=== PATIENT | male | born 1965 | race African-American/Black ===

== ENCOUNTER 2017-06-13 12:58 | Inpatient (IN) | payer OTHER ==
[2017-06-13 13:48] VITALS: BMI 27.4
--- NOTE | 2017-06-13 16:28 | HP ---
CIWA Score - CIWA Score Nausea/Vomitin-Mild Nausea/No Vomiting Muscle Tremors: 4-Moderate,w/Arms Extend Anxiety: 3 Agitation: 3 Paroxysmal Sweats: 1-Minimal Palms Moist Orientation: 1-Uncertain about Date Tacttile Disturbances: 0-None Auditory Disturbances: 0-None Visual Disturbances: 0-None Headache: 1-Very Mild CIWA-Ar Total Score: 14 Admission ROS [facility] - HPI Chief Complaint: withdrawal sx Allergies/Adverse Reactions: Allergies Allergy/AdvReac Type Severity Reaction Status Date / Time lactose AdvReac Verified 06/13/17 16:29 History of Present Illness: 51 YEARS OLD MALE FIRST ADMISSION TO [facility], WITH LONG HISTORY OF ALCOHOL COCAINE NICOTINE DEPENDENCE, HAS GERD AND DEPRESSION IS ADMITTED TO DETOX Exam Limitations: No Limitations - Ebola screening Have you traveled outside of the country in the last 21 days: No Have you had contact with anyone from an Ebola affected area: No Have you been sick,other than usual withdrawal symptoms: No Do you have a fever: No - Review of Systems Constitutional: Changes in sleep, Weight Stable EENT: reports: No Symptoms Reported, Blurred Vision (NEED EYE GLASSES RIGHT EYE BLURRED SINCE CHILD) Respiratory: reports: No Symptoms reported Cardiac: reports: No Symptoms Reported GI: reports: Nausea, Poor Fluid Intake, Indigestion, Abdominal cramping : reports: No Symptoms Reported Musculoskeletal: reports: Joint Pain (KNEES - ARTHRITIS) Integumentary: reports: No Symptoms Reported Neuro: reports: Tremors Endocrine: reports: No Symptoms Reported Hematology: reports: No Symptoms Reported Psychiatric: reports: Judgement Intact, Depressed Other Systems: Reviewed and Negative Patient History - Patient Medical History Hx Anemia: No Hx Asthma: No Hx Chronic Obstructive Pulmonary Disease (COPD): No Hx Cancer: No Hx Cardiac Disorders: No Hx Congestive Heart Failure: No Hx Hypertension: No Hx Hypercholesterolemia: No Hx Pacemaker: No HX Cerebrovascular Accident: No Hx Seizures: No Hx Dementia: No Hx Diabetes: No Hx Gastrointestinal Disorders: Yes Hx Liver Disease: No Hx Genitourinary Disorders: No Hx Sexually Transmitted Disorders: No Hx Renal Disease (ESRD): No Hx Thyroid Disease: No Hx Human Immunodeficiency Virus (HIV): No Hx Hepatitis C: No Hx Depression: Yes Hx Suicide Attempt: No Hx Bipolar Disorder: No Hx Schizophrenia: No - Patient Surgical History Past Surgical History: Yes Hx Neurologic Surgery: No Hx Cataract Extraction: No Hx Cardiac Surgery: No Hx Lung Surgery: No Hx Breast Surgery: No Hx Breast Biopsy: No Hx Abdominal Surgery: Yes (LEFT HERNIA REPAIRED AGE 15 ) Hx Appendectomy: No Hx Cholecystectomy: No Hx Genitourinary Surgery: No Hx Orthopedic Surgery: Yes (LEFT LEG FX 2008) Anesthesia Reaction: No - PPD History Previous Implant?: Yes Documented Results: Negative w/o proof Implanted On Prior [facility] Admission?: No PPD to be Administered?: Yes - Smoking Cessation Smoking history: Current every day smoker Have you smoked in the past 12 months: Yes Aproximately how many cigarettes per day: 15 Cigars Per Day: 0 Hx Chewing Tobacco Use: No Initiated information on smoking cessation: Yes 'Breaking Loose' booklet given: 06/13/17 - Substance & Tx. History Hx Alcohol Use: Yes Hx Substance Use: Yes Substance Use Type: Alcohol, Cocaine Hx Substance Use Treatment: Yes (2015) - Substances Abused Alcohol Route: Oral Frequency: Daily Amount used: 3 pints sg Age of first use: 10 Date of Last Use: 06/12/17 Cocaine Route: Smoking Frequency: 1-2 times per week Amount used: 40$ per day Age of first use: 20 Date of Last Use: 06/11/17 Family Disease History - Family Disease History Family Disease History: Other: Father (/OVERDOSE), Mother (/ CHILDBIRTH) Admission Physical Exam S - Vital Signs Vital Signs: Vital Signs - 24 hr 06/13/17 13:45 Temperature 97.1 F L Pulse Rate 66 Respiratory 16 Rate Blood Pressure 142/89 - Physical General Appearance: Yes: Nourished, Appropriately Dressed, Mild Distress, Tremorous, Irritable, Sweating, Anxious HEENTM: Yes: Hearing grossly Normal, Normocephalic, Normal Voice, Other ( READING EYE GLASSES) Respiratory: Yes: Chest Non-Tender, Lungs Clear, Normal Breath Sounds, No Respiratory Distress, No Accessory Muscle Use Neck: Yes: Supple, Trachea in good position Breast: Yes: Breasts Symetrical Cardiology: Yes: Regular Rhythm, Regular Rate, S1, S2 Abdominal: Yes: Non Tender, Soft Genitourinary: Yes: Within Normal Limits Back: Yes: Normal Inspection Musculoskeletal: Yes: full range of Motion, Gait Steady, Muscle Pain (KNEES) Extremities: Yes: Normal Range of Motion, Non-Tender, Tremors Neurological: Yes: Alert, Motor Strength 5/5, Normal Response, Depressed Affect Integumentary: Yes: Warm Lymphatic: Yes: Within Normal Limits - Diagnostic (1) Alcohol dependence with uncomplicated withdrawal Current Visit: Yes Status: Acute (2) Cocaine dependence, uncomplicated Current Visit: Yes Status: Chronic (3) GERD (gastroesophageal reflux disease) Current Visit: Yes Status: Chronic Qualifiers: Esophagitis presence: without esophagitis Qualified Code(s): K21.9 - Gastro-esophageal reflux disease without esophagitis (4) Nicotine dependence Current Visit: Yes Status: Acute Qualifiers: Nicotine product type: cigarettes Substance use status: in withdrawal Qualified Code(s): F17.213 - Nicotine dependence, cigarettes, with withdrawal (5) Depression (emotion) Current Visit: Yes Status: Suspected Qualifiers: Depression Type: dysthymia Qualified Code(s): F34.1 - Dysthymic disorder Cleared for Admission S - Detox or Rehab [facility] Level of Care: Medically Managed Detox Regimen/Protocol: Librium S Breath Alcohol Content Breath Alcohol Content: 0 Urine Drug Screen - Results Drug Screen Negative: No Urine Drug Screen Results: MANISHA-Cocaine
[2017-06-13] MEDS ORDERED: LOPERAMIDE HCL 2 MG CAPSULE PO PRN (16:36)
[2017-06-13] MEDS ORDERED: MENTHOL/PHENOL 1 EACH UD MM PRN (16:36)
[2017-06-13] MEDS ORDERED: MAGNESIUM HYDROX 2400MG/30ML ORAL SUSPENSION 30 ML CUP PO PRN (16:36)
[2017-06-13] MEDS ORDERED: MAGNESIUM CITRATE 300 ML BOTTLE PO PRN (16:36)
[2017-06-13] MEDS ORDERED: NICOTINE POLACRILEX 4 MG GUM BUC PRN (16:36)
[2017-06-13] MEDS ORDERED: guaiFENesin/D-METHORPHAN HB 10 ML UNIT-DOSE CUPS PO PRN (16:36)
[2017-06-13] MEDS ORDERED: P-EPHED 60MG/TRIPROLIDI 2.5MG TABLET PO PRN (16:36)
[2017-06-13] MEDS ORDERED: MAG HYDROX/AL HYDROX/SIMETH 30 ML UNIT-DOSE CUP PO PRN (16:36)
[2017-06-13] MEDS ORDERED: hydrOXYzine PAMOATE 50 MG CAPSULE (FP) PO PRN (16:36)
[2017-06-13] MEDS ORDERED: chlordiazePOXIDE HCL 25 MG CAPSULE PO PRN (16:36)
[2017-06-13] MEDS ORDERED: ACETAMINOPHEN 325 MG TABLET (FP) PO PRN (16:36)
[2017-06-13] MEDS ORDERED: diphenhydrAMINE HCL 50 MG CAPSULE PO PRN (16:36)
[2017-06-13 21:14] LABS: URINE APPEARANCE SLCLOUDY; URINE BILIRUBIN NEGATIVE (NEGATIVE); URINE BLOOD 2+ (NEGATIVE); URINE COLOR YELLOW; URINE GLUCOSE (UA) NEGATIVE (NEGATIVE); URINE KETONE NEGATIVE (NEGATIVE); URINE LEUK ESTERASE NEGATIVE (NEGATIVE); URINE NITRITE NEGATIVE (NEGATIVE); URINE PROTEIN NEGATIVE (NEGATIVE); URINE UROBILINOGEN NEGATIVE mg/dL (0.2-1.0)
[2017-06-13 21:21] LABS: URINE HYALINE CAST 1 /lpf; URINE MUCUS MODERATE; URINE RBC 13 /hpf (0-3); URINE WBC 3 /hpf (3-5)
[2017-06-13] MEDS: RANITIDINE HCL 150 MG TABLET (FP) PO SCH (22:28)
[2017-06-13] MEDS: THIAMINE HCL 100 MG TABLET (FP) PO SCH (22:28)
[2017-06-13] MEDS: chlordiazePOXIDE HCL 25 MG CAPSULE PO SCH (22:28)
[2017-06-14] MEDS: chlordiazePOXIDE HCL 25 MG CAPSULE PO SCH ×4 (05:56→22:42)
[2017-06-14 09:59] LABS: MCH 30.2 pg (25.7-33.7); MCHC 32.7 g/dl (32.0-35.9); MEAN CELL VOLUME 92.4 fl (80-96); MEAN PLT VOLUME 8.7 fl (7.5-11.1); PLATELET COUNT 212 K/MM3 (134-434); RDW 14.9 % (11.9-15.9); WHITE BLOOD COUNT 3.4 K/mm3 (4.0-10.0)
[2017-06-14] MEDS: RANITIDINE HCL 150 MG TABLET (FP) PO SCH ×2 (10:29→22:42)
[2017-06-14] MEDS: PRENATAL VITAMINS W/ FOLIC ACID TABLET (FP) PO SCH (10:29)
[2017-06-14] MEDS: NICOTINE 21 MG/24 HOURS TOPICAL PATCH TD SCH (10:30)
[2017-06-14 10:55] LABS: ALBUMIN 3.3 g/dl (3.4-5.0); ALK PHOS 49 U/L (45-117); ANION GAP 6 (8-16); BILIRUBIN,TOTAL 0.9 mg/dL (0.2-1.0); CALCIUM 8.7 mg/dL (8.5-10.1); CO2 30 mmol/L (21-32); CREATININE 1.1 mg/dL (0.7-1.3); GLUCOSE,RANDOM 84 mg/dL (74-106); SGOT/AST 15 U/L (15-37); SGPT/ALT 21 U/L (12-78); TOT PROT 6.4 g/dl (6.4-8.2)
--- NOTE | 2017-06-14 11:38 | PN ---
[facility] CIWA - CIWA Score Nausea/Vomitin-No Nausea/No Vomiting Muscle Tremors: 4-Moderate,w/Arms Extend Anxiety: 4-Mod. Anxious/Guarded Agitation: 4-Moderately Restless Paroxysmal Sweats: 1-Minimal Palms Moist Orientation: 0-Oriented Tacttile Disturbances: 3-Moderate Itch/Numb/Burn Auditory Disturbances: 0-None Visual Disturbances: 0-None Headache: 0-None Present CIWA-Ar Total Score: 16 S Progress Note (SOAP) Subjective: ANXIETY,SWEATS, INTERMITTENT SLEEP Objective: 06/14/17 11:35 Vital Signs Temperature 96.2 F L 06/14/17 09:43 Pulse Rate 68 06/14/17 09:43 Respiratory Rate 18 06/14/17 09:43 Blood Pressure 111/70 06/14/17 09:43 O2 Sat by Pulse Oximetry (%) Laboratory Last Values WBC 3.4 K/mm3 (4.0-10.0) L 06/14/17 06:00 RBC 4.87 M/mm3 (4.00-5.60) 06/14/17 06:00 Hgb 14.7 GM/dL (11.7-16.9) 06/14/17 06:00 Hct 45.0 % (35.4-49) 06/14/17 06:00 MCV 92.4 fl (80-96) 06/14/17 06:00 MCH 30.2 pg (25.7-33.7) 06/14/17 06:00 MCHC 32.7 g/dl (32.0-35.9) 06/14/17 06:00 RDW 14.9 % (11.9-15.9) 06/14/17 06:00 Plt Count 212 K/MM3 (134-434) 06/14/17 06:00 MPV 8.7 fl (7.5-11.1) 06/14/17 06:00 Urine Color Yellow 06/13/17 20:00 Urine Appearance Slcloudy 06/13/17 20:00 Urine pH 5.0 (5.0-8.0) 06/13/17 20:00 Ur Specific [place] 1.025 (1.005-1.025) 06/13/17 20:00 Urine Protein Negative (NEGATIVE) 06/13/17 20:00 Urine Glucose (UA) Negative (NEGATIVE) 06/13/17 20:00 Urine Ketones Negative (NEGATIVE) 06/13/17 20:00 Urine Blood 2+ (NEGATIVE) H 06/13/17 20:00 Urine Nitrite Negative (NEGATIVE) 06/13/17 20:00 Urine Bilirubin Negative (NEGATIVE) 06/13/17 20:00 Urine Urobilinogen Negative mg/dL (0.2-1.0) 06/13/17 20:00 Ur Leukocyte Esterase Negative (NEGATIVE) 06/13/17 20:00 Urine RBC 13 /hpf (0-3) 06/13/17 20:00 Urine WBC 3 /hpf (3-5) 06/13/17 20:00 Hyaline Casts 1 /lpf 06/13/17 20:00 Urine Mucus Moderate 06/13/17 20:00 LABS NOTED; CMP PENDING Assessment: 06/14/17 11:36 WITHDRAWAL SX Plan: CONTINUE DETOX INCREASE PO FLUIDS REPEAT UA
--- NOTE | 2017-06-14 11:58 | CONSULT ---
[facility] Psychiatric Consult - Data Date of interview: 06/14/17 Admission source: [facility] Identifying data: First admission to [facility] for this 51 y/o AA male seeking detox treatment on for alcohol and cocaine dependence.Patient is single without children,homeless,unemployed and supported on Public Assistance. Substance Abuse History: Discussed with patient in this interview.Substance dependence confirmed by patient. Smoking Cessation. Smoking history: Current every day smoker. Have you smoked in the past 12 months: Yes. Aproximately how many cigarettes per day: 15. Cigars Per Day: 0. Hx Chewing Tobacco Use: No. Initiated information on smoking cessation: Yes. 'Breaking Loose' booklet given: 06/13/17. - Substance & Tx. History. Hx Alcohol Use: Yes. Hx Substance Use: Yes. Substance Use Type: Alcohol, Cocaine. Hx Substance Use Treatment: Yes (2015). - Substances Abused. Alcohol. Route: Oral. Frequency: Daily. Amount used: 3 pints sg. Age of first use: 10. Date of Last Use: 06/12/17. Cocaine. Route: Smoking. Frequency: 1-2 times per week. Amount used: 40$ per day. Age of first use: 20. Date of Last Use: 06/11 Medical History: Significant for GERD,arthritis (both knees),history of left inguinal herniorraphy and orthosurgery (fracture of left foot in 2007). Psychiatric History: Patient admits to past psychiatric hospitalizations at .Diagnosed with MDD.Mr Bassett reports that he gets his OPD care at [facility] in [facility].Medications reported by patient : olanzapine and lexapro.Mr Bassett denies history of suicide attempts. Physical/Sexual Abuse/Trauma History: Patient denies. Additional Comment: Urine Drug Screen Results: MANISHA-Cocaine.Noted. Mental Status Exam - Mental Status Exam Alert and Oriented to: Time, Place, Person Cognitive Function: Good Patient Appearance: Unkempt, Disheveled Mood: Nervous, Withdrawn Affect: Mood Congruent, Constricted Patient Behavior: Passive, Fatigued, Cooperative Speech Pattern: Clear Voice Loudness: Normal Thought Process: Goal Oriented Thought Disorder: Not Present Hallucinations: Denies Suicidal Ideation: Denies Homicidal Ideation: Denies Insight/Judgement: Poor Sleep: Poorly, Difficulty falling asleep (wants benadryl at bedtime) Appetite: Good Muscle strength/Tone: Normal Gait/Station: Normal Psychiatric Findings - Problem List ([place] 1, 2,3) (1) Alcohol dependence with uncomplicated withdrawal Current Visit: Yes Status: Acute (2) Cocaine dependence, uncomplicated Current Visit: Yes Status: Acute (3) Nicotine dependence Current Visit: Yes Status: Acute Qualifiers: Nicotine product type: cigarettes Substance use status: in withdrawal Qualified Code(s): F17.213 - Nicotine dependence, cigarettes, with withdrawal (4) Substance induced mood disorder Current Visit: Yes Status: Acute (5) Depressive disorder Current Visit: Yes Status: Chronic (6) GERD (gastroesophageal reflux disease) Current Visit: Yes Status: Chronic Qualifiers: Esophagitis presence: without esophagitis Qualified Code(s): K21.9 - Gastro-esophageal reflux disease without esophagitis (7) Insomnia Current Visit: Yes Status: Acute - Initial Treatment Plan Initial Treatment Plan: Psychoeducation.Detoxification.Medications : lexapro 20 mg po daily + zyprexa 5 mg po hs.Side effects/benefits are discussed with patient.He is in agreement with this plan of care.Observation.
[2017-06-14 18:34] LABS: URINE APPEARANCE CLEAR; URINE BILIRUBIN NEGATIVE (NEGATIVE); URINE BLOOD NEGATIVE (NEGATIVE); URINE COLOR LTYELLOW; URINE GLUCOSE (UA) NEGATIVE (NEGATIVE); URINE KETONE NEGATIVE (NEGATIVE); URINE LEUK ESTERASE NEGATIVE (NEGATIVE); URINE NITRITE NEGATIVE (NEGATIVE); URINE PROTEIN NEGATIVE (NEGATIVE); URINE UROBILINOGEN NEGATIVE mg/dL (0.2-1.0)
[2017-06-14] MEDS: OLANZapine 5 MG TABLET PO SCH (22:42)
[2017-06-14] MEDS: THIAMINE HCL 100 MG TABLET (FP) PO SCH (22:42)
[2017-06-15] MEDS: chlordiazePOXIDE HCL 25 MG CAPSULE PO SCH ×3 (07:56→17:33)
[2017-06-15] MEDS: ESCITALOPRAM OXALATE 20 MG TABLET (FP) PO SCH (11:06)
[2017-06-15] MEDS: PRENATAL VITAMINS W/ FOLIC ACID TABLET (FP) PO SCH (11:06)
[2017-06-15] MEDS: NICOTINE 21 MG/24 HOURS TOPICAL PATCH TD SCH (11:06)
[2017-06-15] MEDS: RANITIDINE HCL 150 MG TABLET (FP) PO SCH ×2 (11:06→22:54)
--- NOTE | 2017-06-15 11:14 | PN ---
[facility] CIWA - CIWA Score Nausea/Vomitin-No Nausea/No Vomiting Muscle Tremors: 4-Moderate,w/Arms Extend Anxiety: 4-Mod. Anxious/Guarded Agitation: 4-Moderately Restless Paroxysmal Sweats: 1-Minimal Palms Moist Orientation: 0-Oriented Tacttile Disturbances: 0-None Auditory Disturbances: 0-None Visual Disturbances: 0-None Headache: 0-None Present CIWA-Ar Total Score: 13 S Progress Note (SOAP) Subjective: ANXIETY,SWEATS, FATIGUE. Objective: 06/15/17 11:14 Vital Signs Temperature 96.1 F L 06/15/17 09:32 Pulse Rate 61 06/15/17 09:32 Respiratory Rate 18 06/15/17 09:32 Blood Pressure 115/80 06/15/17 09:32 O2 Sat by Pulse Oximetry (%) Laboratory Last Values WBC 3.4 K/mm3 (4.0-10.0) L 06/14/17 06:00 RBC 4.87 M/mm3 (4.00-5.60) 06/14/17 06:00 Hgb 14.7 GM/dL (11.7-16.9) 06/14/17 06:00 Hct 45.0 % (35.4-49) 06/14/17 06:00 MCV 92.4 fl (80-96) 06/14/17 06:00 MCH 30.2 pg (25.7-33.7) 06/14/17 06:00 MCHC 32.7 g/dl (32.0-35.9) 06/14/17 06:00 RDW 14.9 % (11.9-15.9) 06/14/17 06:00 Plt Count 212 K/MM3 (134-434) 06/14/17 06:00 MPV 8.7 fl (7.5-11.1) 06/14/17 06:00 Sodium 142 mmol/L (136-145) 06/14/17 06:00 Potassium 3.9 mmol/L (3.5-5.1) 06/14/17 06:00 Chloride 106 mmol/L (98-107) 06/14/17 06:00 Carbon Dioxide 30 mmol/L (21-32) 06/14/17 06:00 Anion Gap 6 (8-16) L 06/14/17 06:00 BUN 10 mg/dL (7-18) 06/14/17 06:00 Creatinine 1.1 mg/dL (0.7-1.3) 06/14/17 06:00 Creat Clearance w eGFR > 60 (>60) 06/14/17 06:00 Random Glucose 84 mg/dL (74-106) 06/14/17 06:00 Calcium 8.7 mg/dL (8.5-10.1) 06/14/17 06:00 Total Bilirubin 0.9 mg/dL (0.2-1.0) 06/14/17 06:00 AST 15 U/L (15-37) 06/14/17 06:00 ALT 21 U/L (12-78) 06/14/17 06:00 Alkaline Phosphatase 49 U/L (45-117) 06/14/17 06:00 Total Protein 6.4 g/dl (6.4-8.2) 06/14/17 06:00 Albumin 3.3 g/dl (3.4-5.0) L 06/14/17 06:00 Urine Color Ltyellow 06/14/17 17:45 Urine Appearance Clear 06/14/17 17:45 Urine pH 7.0 (5.0-8.0) D 06/14/17 17:45 Ur Specific [place] 1.015 (1.005-1.025) 06/14/17 17:45 Urine Protein Negative (NEGATIVE) 06/14/17 17:45 Urine Glucose (UA) Negative (NEGATIVE) 06/14/17 17:45 Urine Ketones Negative (NEGATIVE) 06/14/17 17:45 Urine Blood Negative (NEGATIVE) 06/14/17 17:45 Urine Nitrite Negative (NEGATIVE) 06/14/17 17:45 Urine Bilirubin Negative (NEGATIVE) 06/14/17 17:45 Urine Urobilinogen Negative mg/dL (0.2-1.0) 06/14/17 17:45 Ur Leukocyte Esterase Negative (NEGATIVE) 06/14/17 17:45 Urine RBC 13 /hpf (0-3) 06/13/17 20:00 Urine WBC 3 /hpf (3-5) 06/13/17 20:00 Hyaline Casts 1 /lpf 06/13/17 20:00 Urine Mucus Moderate 06/13/17 20:00 REPEAT UA WNL UC PENDING Assessment: 06/15/17 11:15 WITHDRAWAL SX Plan: CONTINUE DETOX
--- NOTE | 2017-06-15 11:36 | EKG ---
Test Reason : Blood Pressure : / mmHG Vent. Rate : 062 BPM Atrial Rate : 062 BPM P-R Int : 186 ms QRS Dur : 130 ms QT Int : 442 ms P-R-T Axes : 044 032 -22 degrees QTc Int : 448 ms NORMAL SINUS RHYTHM NON-SPECIFIC INTRA-VENTRICULAR CONDUCTION BLOCK CANNOT RULE OUT SEPTAL INFARCT (CITED ON OR BEFORE 13-JUN-2017) ABNORMAL ECG WHEN COMPARED WITH ECG OF 13-JUN-2017 18:43, T WAVE INVERSION MORE EVIDENT IN INFERIOR LEADS Confirmed by JOSE ARREOLA, CIPRIANO ([id number]) on 06/15/2017 11:36:04 AM Referred By: Confirmed By:CIPRIANO GARCIA MD
--- NOTE | 2017-06-15 11:36 | EKG ---
Test Reason : Blood Pressure : / mmHG Vent. Rate : 062 BPM Atrial Rate : 062 BPM P-R Int : 178 ms QRS Dur : 132 ms QT Int : 424 ms P-R-T Axes : 049 044 -23 degrees QTc Int : 430 ms NORMAL SINUS RHYTHM NON-SPECIFIC INTRA-VENTRICULAR CONDUCTION BLOCK CANNOT RULE OUT ANTEROSEPTAL INFARCT , AGE UNDETERMINED ABNORMAL ECG NO PREVIOUS ECGS AVAILABLE Confirmed by JOSE ARREOLA, CIPRIANO ([id number]) on 06/15/2017 11:35:49 AM Referred By: Roldan Lorenz Confirmed By:CIPRIANO GARCIA MD
[2017-06-15] MEDS: OLANZapine 5 MG TABLET PO SCH (22:54)
[2017-06-15] MEDS: THIAMINE HCL 100 MG TABLET (FP) PO SCH (22:54)
[2017-06-15] MEDS: chlordiazePOXIDE 5 MG CAPSULE PO SCH (22:55)
[2017-06-16] MEDS: chlordiazePOXIDE 5 MG CAPSULE PO SCH ×3 (06:15→17:16)
[2017-06-16] MEDS: RANITIDINE HCL 150 MG TABLET (FP) PO SCH ×2 (11:04→22:48)
[2017-06-16] MEDS: ESCITALOPRAM OXALATE 20 MG TABLET (FP) PO SCH (11:04)
[2017-06-16] MEDS: PRENATAL VITAMINS W/ FOLIC ACID TABLET (FP) PO SCH (11:04)
[2017-06-16] MEDS: NICOTINE 21 MG/24 HOURS TOPICAL PATCH TD SCH (11:04)
--- NOTE | 2017-06-16 12:29 | PN ---
S Progress Note (SOAP) Subjective: ALERT O X 3. DECREASED WITHDRAWAL SX. Objective: 06/16/17 12:28 Vital Signs Temperature 96.2 F L 06/16/17 10:25 Pulse Rate 61 06/16/17 10:25 Respiratory Rate 18 06/16/17 10:25 Blood Pressure 126/85 06/16/17 10:25 O2 Sat by Pulse Oximetry (%) Laboratory Last Values WBC 3.4 K/mm3 (4.0-10.0) L 06/14/17 06:00 RBC 4.87 M/mm3 (4.00-5.60) 06/14/17 06:00 Hgb 14.7 GM/dL (11.7-16.9) 06/14/17 06:00 Hct 45.0 % (35.4-49) 06/14/17 06:00 MCV 92.4 fl (80-96) 06/14/17 06:00 MCH 30.2 pg (25.7-33.7) 06/14/17 06:00 MCHC 32.7 g/dl (32.0-35.9) 06/14/17 06:00 RDW 14.9 % (11.9-15.9) 06/14/17 06:00 Plt Count 212 K/MM3 (134-434) 06/14/17 06:00 MPV 8.7 fl (7.5-11.1) 06/14/17 06:00 Sodium 142 mmol/L (136-145) 06/14/17 06:00 Potassium 3.9 mmol/L (3.5-5.1) 06/14/17 06:00 Chloride 106 mmol/L (98-107) 06/14/17 06:00 Carbon Dioxide 30 mmol/L (21-32) 06/14/17 06:00 Anion Gap 6 (8-16) L 06/14/17 06:00 BUN 10 mg/dL (7-18) 06/14/17 06:00 Creatinine 1.1 mg/dL (0.7-1.3) 06/14/17 06:00 Creat Clearance w eGFR > 60 (>60) 06/14/17 06:00 Random Glucose 84 mg/dL (74-106) 06/14/17 06:00 Calcium 8.7 mg/dL (8.5-10.1) 06/14/17 06:00 Total Bilirubin 0.9 mg/dL (0.2-1.0) 06/14/17 06:00 AST 15 U/L (15-37) 06/14/17 06:00 ALT 21 U/L (12-78) 06/14/17 06:00 Alkaline Phosphatase 49 U/L (45-117) 06/14/17 06:00 Total Protein 6.4 g/dl (6.4-8.2) 06/14/17 06:00 Albumin 3.3 g/dl (3.4-5.0) L 06/14/17 06:00 Urine Color Ltyellow 06/14/17 17:45 Urine Appearance Clear 06/14/17 17:45 Urine pH 7.0 (5.0-8.0) D 06/14/17 17:45 Ur Specific [place] 1.015 (1.005-1.025) 06/14/17 17:45 Urine Protein Negative (NEGATIVE) 06/14/17 17:45 Urine Glucose (UA) Negative (NEGATIVE) 06/14/17 17:45 Urine Ketones Negative (NEGATIVE) 06/14/17 17:45 Urine Blood Negative (NEGATIVE) 06/14/17 17:45 Urine Nitrite Negative (NEGATIVE) 06/14/17 17:45 Urine Bilirubin Negative (NEGATIVE) 06/14/17 17:45 Urine Urobilinogen Negative mg/dL (0.2-1.0) 06/14/17 17:45 Ur Leukocyte Esterase Negative (NEGATIVE) 06/14/17 17:45 Urine RBC 13 /hpf (0-3) 06/13/17 20:00 Urine WBC 3 /hpf (3-5) 06/13/17 20:00 Hyaline Casts 1 /lpf 06/13/17 20:00 Urine Mucus Moderate 06/13/17 20:00 RPR Titer Nonreactive (NONREACTIVE) 06/14/17 06:00 Laboratory Tests 06/13/17 06/14/17 06/14/17 20:00 06:00 06:00 WBC 3.4 L RBC 4.87 Hgb 14.7 Hct 45.0 MCV 92.4 MCH 30.2 MCHC 32.7 RDW 14.9 Plt Count 212 MPV 8.7 Sodium 142 Potassium 3.9 Chloride 106 Carbon Dioxide 30 Anion Gap 6 L BUN 10 Creatinine 1.1 Creat Clearance w eGFR > 60 Random Glucose 84 Calcium 8.7 Total Bilirubin 0.9 AST 15 ALT 21 Alkaline Phosphatase 49 Total Protein 6.4 Albumin 3.3 L Urine Color Yellow Urine Appearance Slcloudy Urine pH 5.0 Ur Specific [place] 1.025 Urine Protein Negative Urine Glucose (UA) Negative Urine Ketones Negative Urine Blood 2+ H Urine Nitrite Negative Urine Bilirubin Negative Urine Urobilinogen Negative Ur Leukocyte Esterase Negative Urine RBC 13 Urine WBC 3 Hyaline Casts 1 Urine Mucus Moderate RPR Titer 06/14/17 06/14/17 06:00 17:45 WBC RBC Hgb Hct MCV MCH MCHC RDW Plt Count MPV Sodium Potassium Chloride Carbon Dioxide Anion Gap BUN Creatinine Creat Clearance w eGFR Random Glucose Calcium Total Bilirubin AST ALT Alkaline Phosphatase Total Protein Albumin Urine Color Ltyellow Urine Appearance Clear Urine pH 7.0 D Ur Specific [place] 1.015 Urine Protein Negative Urine Glucose (UA) Negative Urine Ketones Negative Urine Blood Negative Urine Nitrite Negative Urine Bilirubin Negative Urine Urobilinogen Negative Ur Leukocyte Esterase Negative Urine RBC Urine WBC Hyaline Casts Urine Mucus RPR Titer Nonreactive Assessment: 06/16/17 12:28 WITHDRAWAL SX Plan: CONTINUE DETOX
[2017-06-16] MEDS: THIAMINE HCL 100 MG TABLET (FP) PO SCH (22:48)
[2017-06-16] MEDS: OLANZapine 5 MG TABLET PO SCH (22:48)
[2017-06-16] MEDS: chlordiazePOXIDE HCL 10 MG CAPSULE PO SCH (22:48)
[2017-06-17] MEDS: chlordiazePOXIDE HCL 10 MG CAPSULE PO SCH ×2 (06:38→11:02)
[2017-06-17] MEDS: ESCITALOPRAM OXALATE 20 MG TABLET (FP) PO SCH (11:00)
[2017-06-17] MEDS: PRENATAL VITAMINS W/ FOLIC ACID TABLET (FP) PO SCH (11:00)
[2017-06-17] MEDS: NICOTINE 21 MG/24 HOURS TOPICAL PATCH TD SCH (11:00)
[2017-06-17] MEDS: RANITIDINE HCL 150 MG TABLET (FP) PO SCH (11:00)
--- NOTE | 2017-06-17 12:55 | DS ---
[facility] Detox Discharge Summary Admission Date: 06/13/17 Discharge Date: 06/17/17 - History Present History: Alcohol Dependence, Cocaine Dependence Additional Comments: DETOX COMPLETED. ALERT O X 3. NAD. PT INSTRUCTED TO FOLLOW UP WITH PMD AT [facility] Pertinent Past History: GERD INSOMNIA DEPRESSION - Physical Exam Results Vital Signs: Vital Signs Temperature 96.5 F L 06/17/17 10:45 Pulse Rate 75 06/17/17 10:45 Respiratory Rate 18 06/17/17 10:45 Blood Pressure 128/84 06/17/17 10:45 O2 Sat by Pulse Oximetry (%) Pertinent Admission Physical Exam Findings: WITHDRAWAL SX - Treatment Hospital Course: Detox Protocol Followed, Detoxed Safely, Responded well, Discharged Condition Good, Rehab Referral Accepted Patient has Accepted a Rehab Referral to: [facility] - Medication Discharge Medications: Ambulatory Orders Escitalopram Oxalate [Lexapro -] 20 mg PO DAILY 06/13/17 Escitalopram Oxalate [Lexapro -] 20 mg PO DAILY #30 tablet 06/14/17 Olanzapine [Zyprexa] 5 mg PO HS #30 tablet 06/14/17 - Diagnosis (1) Alcohol dependence with uncomplicated withdrawal Current Visit: Yes Status: Acute (2) Nicotine dependence Current Visit: Yes Status: Acute Qualifiers: Nicotine product type: cigarettes Substance use status: in withdrawal Qualified Code(s): F17.213 - Nicotine dependence, cigarettes, with withdrawal (3) Cocaine dependence, uncomplicated Current Visit: Yes Status: Acute (4) GERD (gastroesophageal reflux disease) Current Visit: Yes Status: Chronic Qualifiers: Esophagitis presence: without esophagitis Qualified Code(s): K21.9 - Gastro-esophageal reflux disease without esophagitis - AMA Did Patient Leave Against Medical Advice: No
[2017-06-17 14:02] VITALS: BP 140/89; PULSE 83; TEMP 97.4
== END 2017-06-17 14:15 | disposition home or self-care (01) | DRG 774 ==
LOC: YASAS 12:58 → Y3N 17:40
PROVIDERS: ADMIT Internal Medicine; ATTEND Internal Medicine
PROC: HZ2ZZZZ Detoxification Services for Substance Abuse Treatment (ICD-10-PCS; principal; 2017-06-17)
DX: F10.230 Alcohol dependence with withdrawal, uncomplicated (principal); F14.20 Cocaine dependence, uncomplicated; F17.210 Nicotine dependence, cigarettes, uncomplicated; F19.24 Other psychoactive substance dependence with psychoactive substance-induced mood disorder; F34.1 Dysthymic disorder; K21.9 Gastro-esophageal reflux disease without esophagitis
CPT/HCPCS: 36415; 80053; 81003; 81015; 85027; 86593; 87086; 93005; 93010